=== PATIENT | male | born 1940 | race Caucasian/White ===

== ENCOUNTER 2016-06-13 09:31 | Observation (INO) | payer OTHER ==
--- NOTE | ~2016-06-13 | HP ---
History And Physical [address] [facility] [place]. [address] NAME: AMBERLY CORTÉS : 42 STATUS : ADM Erin PAT#: [id number] AGE: 75 ADM/REG DATE : 06/13/16 MR#: [id number] REPORT SERV DATE: 06/13/16 DICTATED BY: JOSE WANG DATE: 06/13/16 REPORT STATUS : Draft TRANSCRIBED BY: MODCatalino DATE: 06/13/16 DATE OF ADMISSION: 06/13/2016 CHIEF COMPLAINT: Chest pain with typical and atypical features. HISTORY OF PRESENT ILLNESS: A very pleasant 75-year-old white gentleman with identified mild CAD by catheterization in 2005 with a 30% proximal RCA lesion at the time and an EF of 45%- 50%. The patient states that on 06/12 around 1200 [address] car, he experienced substernal chest pain that radiated to his left arm and into his back. He drank a Coke and belched, which improved his symptoms. On 06/13 around 0230, he awoke with chest pain, again his symptoms improved by drinking Coke and belching. He describes some associated shortness of breath and nausea. Denies diaphoresis, dizziness, or belching. Today, he drove a school bus. When he got off work, he began walking around the track and developed chest pain with exertion. He stopped and drove himself to the hospital. He did take some ibuprofen for the discomfort with no improvement in his pain. At its most intense, he rated the chest pain an 8/10. At time of interview in the [facility], he is pain free. He states the episodes last 30-45 minutes in duration. He was provided morphine in the emergency room. The chest pain returned. He was given additional morphine and nitro paste per the patient's report with relief of his symptoms. The patient denies any personal history of myocardial infarction, stroke, DVT, or pulmonary embolus. The patient denies any recent fever or chills, palpitations, no syncopal episodes. Denies PND or orthopnea. PAST MEDICAL HISTORY: 1. Mild CAD by cath in 2005 with a 30% proximal RCA lesion. 2. Dyslipidemia. 3. AODM. 4. Denies hypertension. 5. Sleep apnea compliant with CPAP. 6. BPH. 7. Elevated creatinine identified on this admission of 1.77. PAST SURGICAL HISTORY: 1. Right total knee. 2. Cholecystectomy. 3. Right hand surgery. SOCIAL HISTORY: He is with four children. He is retired, extremely active on his property, and on a daily basis. States that he cleared brush Sunday without any chest pain. Denies tobacco, alcohol, or illicits. FAMILY HISTORY: Mother with CAD and bypass in her 70s at the age of 92. Father of dementia. REVIEW OF SYSTEMS: History And Physical [address] [address] NAME: AMBERLY CORTÉS : 42 STATUS : ADM Erin PAT#: [id number] AGE: 75 ADM/REG DATE : 06/13/16 MR#: [id number] REPORT SERV DATE: 06/13/16 DICTATED BY: JOSE WANG DATE: 06/13/16 REPORT STATUS : Draft TRANSCRIBED BY: HAYLEY DATE: 06/13/16 A 14-point review of systems performed, significant for HPI including chronic left shoulder pain for which he takes ibuprofen approximately 400 mg five times weekly. Otherwise, complete review of systems obtained and negative. ALLERGIES: ALLERGY TO AMOXICILLIN, RASH; EFFEXOR. HOME MEDICINES: Multivitamin daily, fish oil 1200 mg twice daily, aspirin 81 mg daily, ibuprofen 400 mg twice daily p.r.n., testosterone cream, Flomax 0.4 mg daily, pravastatin 40 mg nightly, metformin ER 1000 mg twice daily, glimepiride 2 mg in the morning and 4 mg at bedtime, Onglyza 5 mg daily, Elavil 50 mg nightly, l-lysine 500 mg twice daily. PHYSICAL EXAMINATION: VITAL SIGNS: Blood pressure 177/74, pulse 57, respirations 16, temperature 97.2, O2 saturation 98% on room air. Height 5 feet 6 inches. Weight 186 pounds. BMI 30. GENERAL: Cooperative, in no apparent distress. HEENT: Pupils 2 mm, sclera nonicteric. Nares patent. Moist mucous membranes. No xanthelasma. NECK: Trachea midline, no thyromegaly. No JVD. No bruits. LYMPH: No cervical lymphadenopathy. No supraclavicular lymphadenopathy. RESPIRATORY: Unlabored respirations. Breath sounds clear bilaterally to posterior auscultation. No wheezes or rhonchi. CARDIOVASCULAR: Regular rate. No murmur, rub or gallop appreciated. Extremities without edema. Pulses 2+ bilaterally. ABDOMEN: Soft, nontender, nondistended, normal bowel sounds auscultated throughout. No organomegaly. SKIN: Warm, dry extremities. No pallor, or cyanosis. PSYCHIATRIC: Appropriate affect. Alert, oriented x3. LABORATORY DATA: Troponin 0.03, second pending. Potassium 5.0, BUN 46, creatinine 1.77 (none for comparison), glucose 161, magnesium 2.1. WBC 6.6, hemoglobin 13.3, hematocrit 39.4, platelet count 279,000. EKG; sinus rhythm with LAD. Cath 2005 ([place]): 30% proximal RCA, EF of 45%-50%. ASSESSMENT AND PLAN: 1. Substernal chest pain with typical and atypical features. The patient will be observed in the CPOU to rule out myocardial infarction with serial enzymes and serial EKGs. If troponins are negative or flat, consider MPI versus cath. If anything is suggestive of ischemia, Cardiology referral will be initiated. Otherwise, the patient will be asked to follow up with his PCP in one to two weeks with all studies being sent to that office. 2. Mild coronary artery disease by catheterization in 2005. Continue aspirin and nitro paste. 3. Renal insufficiency. Creatinine 1.77 reports "kidney issues," but does not see a stopper maker helper and sees a urologist for BPH. Normal saline at 50 mL an hour. Recheck a creatinine in a.m. 4. NSAID use for chronic left shoulder pain. Counseled regarding excessive or prolonged NSAID use given possible renal insufficiency. We would recommend Tylenol for pain if History And Physical [address] [address] NAME: AMBERLY CORTÉS : 42 STATUS : ADM Erin PAT#: [id number] AGE: 75 ADM/REG DATE : 06/13/16 MR#: [id number] REPORT SERV DATE: 06/13/16 DICTATED BY: JOSE WANG DATE: 06/13/16 REPORT STATUS : Draft TRANSCRIBED BY: MODL DATE: 06/13/16 possible. 5. Dyslipidemia. Continue statin. 6. Adult-onset diabetes mellitus. Hold metformin, level 1 sliding scale correction. ALEXI/HAYLEY WILBER Teran, MARLEY-KATHE / [id number] CC: WILBER Teran, MARLEY-KATHE Hamilton M.D.
[~2016-06-13 09:31] MED LIST: ADVIL PO; ASAB PO; FISH OIL1200 MG PO; MULTIVIT/MIN PO; TESTOSTERONE CREAM TOP
[2016-06-13] MEDS ORDERED: FLOMAX4 PO (09:47)
[2016-06-13] MEDS ORDERED: PRAVACHOL40 MG PO (09:47)
[2016-06-13] MEDS ORDERED: FORTAMET1000 MG PO (09:47)
[2016-06-13] MEDS ORDERED: AMIT50 PO (09:48)
[2016-06-13] MEDS ORDERED: ONGLYZA5 MG PO (09:48)
[2016-06-13] MEDS ORDERED: L-LYSINE500 M1 PO (09:48)
[2016-06-13] MEDS ORDERED: AMARYL2 PO (09:48)
[2016-06-13] MEDS ORDERED: AMARYL4 PO (09:48)
[2016-06-13 09:50] LABS: BASOPHILS 0.9 %; BASOPHILS ABSOLUTE 0.06 10/3/uL (0.0-0.16); EOSINOPHILS 3.2 %; EOSINOPHILS ABSOLUTE 0.21 10/3/uL (0.0-0.53); ER CBC TAT 0 Hrs 03 Mins; HEMATOCRIT 39.4 % (40.0-51.0); HEMOGLOBIN 13.3 g/dL (13.6-17.8); IMMATURE GRANULOCYTES 0.3 %; IMMATURE GRANULOCYTES ABSOLUTE 0.02 10/3/uL (0.0-0.11); LYMPHOCYTES 26.8 %; LYMPHOCYTES ABSOLUTE 1.78 10/3/uL (0.67-4.30); MANUAL DIFF NO %; MEAN CORPUS HGB CONC 33.8 g/dL (32.0-36.0); MEAN CORPUSCULAR HEMOGLOB 30.4 pg (26.0-34.0); MEAN CORPUSCULAR VOLUME 90.2 fL (80-100); MEAN PLATELET VOLUME 9.4 fL (9.2-13.0); MONOCYTES 5.4 %; MONOCYTES ABSOLUTE 0.36 10/3/uL (0.21-1.20); NEUTROPHILS 63.4 %; NEUTROPHILS ABSOLUTE 4.21 10/3/uL (2.02-8.40); PLATELET COUNT 279 10/3/uL (150-400); RBC DISTRIBUTION WIDTH 13.1 % (12.0-16.0); RED CELL COUNT 4.37 10/6/uL (4.7-6.1); WHITE BLOOD CELLS 6.6 10/3/uL (4.5-10.5)
[2016-06-13 09:59] LABS: INTERNATIONAL NORMAL RATI 0.9 UNITS (-); PARTIAL THROMBO TIME 26.4 SEC (22.5-37.2); PROTIME (NOT ORD) 12.5 SEC (12.0-14.5)
[2016-06-13 10:12] LABS: BUN (BLOOD UREA NITROGEN) 46 MG/DL (6-23); CALCIUM, SERUM 9.1 MG/DL (8.5-10.4); CHEST PAIN PROFILE TAT 0 Hrs 25 Mins; CHLORIDE, SERUM 107 MMOL/L (96-112); CO2 (CARBON DIOXIDE) 23 MMOL/L (24-34); CREATININE 1.77 MG/DL (0.70-1.30); GFR AFRICAN AMERICAN 43 ML/MIN (>=60); GFR NON AFRICAN AMERICAN 37 ML/MIN (>=60); GLUCOSE, SERUM 161 MG/DL (60-99); SODIUM, SERUM 137 MMOL/L (135-148); TROPONIN I 0.03 NG/ML (<0.05)
[2016-06-14 05:32] LABS: BUN (BLOOD UREA NITROGEN) 37 MG/DL (6-23); CALCIUM, SERUM 8.6 MG/DL (8.5-10.4); CHLORIDE, SERUM 111 MMOL/L (96-112); CO2 (CARBON DIOXIDE) 23 MMOL/L (24-34); CREATININE 1.67 MG/DL (0.70-1.30); GFR AFRICAN AMERICAN 46 ML/MIN (>=60); GFR NON AFRICAN AMERICAN 40 ML/MIN (>=60); GLUCOSE, SERUM 118 MG/DL (60-99); POTASSIUM, SERUM 4.6 MMOL/L (3.5-5.3); SODIUM, SERUM 141 MMOL/L (135-148); TROPONIN I 0.12 NG/ML (<0.05)
[2016-06-14 13:58] LABS: CHOL/HDL RATIO(NOT ORDER) 3.7 (0-5); CHOLESTEROL 171 MG/DL (< 200); HDL CHOLESTEROL 46 MG/DL (> 39); LDL CHOLESTEROL 77 MG/DL (< 130); NON-HDL CHOLESTEROL 125 MG/DL (< 160); TRIGLYCERIDE 242 MG/DL (< 150)
[2016-06-15 04:42] LABS: BASOPHILS 0.5 %; BASOPHILS ABSOLUTE 0.04 10/3/uL (0.0-0.16); EOSINOPHILS 3.8 %; EOSINOPHILS ABSOLUTE 0.31 10/3/uL (0.0-0.53); HEMOGLOBIN 11.9 g/dL (13.6-17.8); IMMATURE GRANULOCYTES 0.2 %; IMMATURE GRANULOCYTES ABSOLUTE 0.02 10/3/uL (0.0-0.11); LYMPHOCYTES 31.6 %; LYMPHOCYTES ABSOLUTE 2.59 10/3/uL (0.67-4.30); MEAN CORPUS HGB CONC 33.9 g/dL (32.0-36.0); MEAN CORPUSCULAR HEMOGLOB 30.5 pg (26.0-34.0); MEAN PLATELET VOLUME 9.6 fL (9.2-13.0); MONOCYTES 5.7 %; MONOCYTES ABSOLUTE 0.47 10/3/uL (0.21-1.20); NEUTROPHILS 58.2 %; NEUTROPHILS ABSOLUTE 4.76 10/3/uL (2.02-8.40); PLATELET COUNT 249 10/3/uL (150-400); RBC DISTRIBUTION WIDTH 13.3 % (12.0-16.0); WHITE BLOOD CELLS 8.2 10/3/uL (4.5-10.5)
[2016-06-15 04:43] LABS: HEMATOCRIT 35.1 % (40.0-51.0); MANUAL DIFF NO %
[2016-06-15 04:44] LABS: CALCIUM, SERUM 8.5 MG/DL (8.5-10.4); CHLORIDE, SERUM 110 MMOL/L (96-112); CO2 (CARBON DIOXIDE) 26 MMOL/L (24-34); CREATININE 1.62 MG/DL (0.70-1.30); GFR AFRICAN AMERICAN 48 ML/MIN (>=60); GFR NON AFRICAN AMERICAN 41 ML/MIN (>=60); POTASSIUM, SERUM 4.3 MMOL/L (3.5-5.3); SODIUM, SERUM 143 MMOL/L (135-148)
[2016-06-15 04:47] LABS: BUN (BLOOD UREA NITROGEN) 30 MG/DL (6-23); GLUCOSE, SERUM 150 MG/DL (60-99)
[2016-06-15] MEDS ORDERED: BRILINTA90 MG PO (09:15)
[2016-06-15] MEDS ORDERED: COREG3 PO (09:16)
[2016-06-15] MEDS ORDERED: LIPITOR40 PO (09:16)
[2016-06-15] MEDS ORDERED: NTG150 SL (09:17)
== END 2016-06-15 10:35 | disposition home or self-care (01) ==
LOC: ER 09:31 → CDU1 11:10 → CDU2 11:38 → SSU1 06-14 15:37
PROVIDERS: Clinical Nurse Specialist; Internal Medicine Cardiovascular Disease; Nurse Practitioner Acute Care
PROC: 4A023N7 Measurement of Cardiac Sampling and Pressure, Left Heart, Percutaneous Approach (ICD-10-PCS; principal; 2016-06-15)
PROC: B2111ZZ Fluoroscopy of Multiple Coronary Arteries using Low Osmolar Contrast (ICD-10-PCS; 2016-06-15)
PROC: 027034Z Dilation of Coronary Artery, One Artery with Drug-eluting Intraluminal Device, Percutaneous Approach (ICD-10-PCS; 2016-06-15)
DX: I25.110 Atherosclerotic heart disease of native coronary artery with unstable angina pectoris (principal); N40.0 Benign prostatic hyperplasia without lower urinary tract symptoms; E78.5 Hyperlipidemia, unspecified; E11.9 Type 2 diabetes mellitus without complications; G47.33 Obstructive sleep apnea (adult) (pediatric); Z99.89 Dependence on other enabling machines and devices; Z96.651 Presence of right artificial knee joint; Z90.49 Acquired absence of other specified parts of digestive tract; Z98.890 Other specified postprocedural states; Z82.49 Family history of ischemic heart disease and other diseases of the circulatory system; Z82.0 Family history of epilepsy and other diseases of the nervous system; Z88.0 Allergy status to penicillin; Z88.8 Allergy status to other drugs, medicaments and biological substances; Z79.82 Long term (current) use of aspirin; Z79.84 Long term (current) use of oral hypoglycemic drugs; Z79.899 Other long term (current) drug therapy
CPT/HCPCS: 71010; 78452; 80048; 80061; 82962; 83735; 84484; 85025; 85347; 85610; 85730; 93005; 93017; 93458; 99152; 99153; 99285; A9270-GY; A9502; C1725; C1769; C1874; C1887; C1894; C8929; C9600; G0378; J2250; J2405; J3010; Q9957; Q9967